=== PATIENT | female | born 2000 | race Caucasian/White ===

== ENCOUNTER 2021-01-11 20:20 | Emergency (ER) | payer BC ==
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
== END 2021-01-11 20:45 | disposition home or self-care (01) ==
LOC: LL.ED 20:20
DX: T24.512A Corrosion of first degree of left thigh, initial encounter (principal); T24.511A Corrosion of first degree of right thigh, initial encounter; T24.502A Corrosion of first degree of unspecified site of left lower limb, except ankle and foot, initial encounter; T54.3X1A Toxic effect of corrosive alkalis and alkali-like substances, accidental (unintentional), initial encounter; G43.909 Migraine, unspecified, not intractable, without status migrainosus; E66.9 Obesity, unspecified; R03.0 Elevated blood-pressure reading, without diagnosis of hypertension; Z88.0 Allergy status to penicillin; Z88.2 Allergy status to sulfonamides; Z68.42 Body mass index [BMI] 45.0-49.9, adult
CPT/HCPCS: 99283; 99284

== ENCOUNTER 2021-04-20 15:54 | Emergency (ER) | payer BC ==
--- NOTE | 2021-04-20 16:11 | EDM.PDOC ---
ED HPI GENERAL MEDICAL PROBLEM - General Chief Complaint: General Stated Complaint: NAUSEA/ABDOMINAL PAIN Time Seen by Provider: 04/20/21 16:00 Source of Information: Reports: Patient History Limitations: Reports: No Limitations - History of Present Illness INITIAL COMMENTS - FREE TEXT/NARRATIVE: She is seen in the emergency department for evaluation of right lower quadrant abdominal pain. Pain had sudden onset approximately 4 hours prior to arrival. Is well localized to the right lower quadrant. No radiating pain. No change with position. She has been nauseous with emesis x2. No fever or chills. No diarrhea. Normal bowel movement this morning. No recent illness. No shortness of breath or cough. No history of previous similar problems. Last menstrual period finished 2 days ago. She does states that her menstrual periods are very irregular. No vaginal discharge. Right Lower Abdomen Pain Score (Numeric/FACES): 8 - Related Data Allergies Allergy/AdvReac Type Severity Reaction Status Date / Time amoxicillin Allergy Rash Verified 04/20/21 16:01 Penicillins Allergy Shortness Verified 04/20/21 16:01 of Breath Sulfa (Sulfonamide Allergy Shortness Verified 04/20/21 16:01 Antibiotics) of Breath Home Meds: Home Meds . [No Known Home Meds] 01/11/21 [History] Past Medical History HEENT History: Reports: Impaired Vision, Other (See Below) Other HEENT History: Patient wears glasses. Cardiovascular History: Reports: Heart Murmur, Other (See Below) Other Cardiovascular History: Benign functional murmur on an intermittent basis with no work-up. Occasionally elevated blood pressure with no true hypertension. 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 Denies: Black Stool, Bloody Stool, Difficulty Swallowing, Hematemesis : Denies: Discharge, Dysuria, Frequency, Urgency Neurological: Denies: Confusion, Dizziness Psychiatric: Denies: Anxiety, Depression ED EXAM, GENERAL - Physical Exam Exam: See Below Exam Limited By: No Limitations General Appearance: Alert, WD/WN, No Apparent Distress Nose: Normal Inspection, Normal Mucosa, No Blood Throat/Mouth: Normal Inspection, Normal Oropharynx Head: Atraumatic, Normocephalic Neck: Non-Tender. No: Lymphadenopathy (L), Lymphadenopathy (R) Respiratory/Chest: No Respiratory Distress, Lungs Clear, Normal Breath Sounds GI/Abdominal: Normal Bowel Sounds, Soft, No Organomegaly, No Distention, No Mass, Tender (Mild tenderness in the right lower quadrant. No other tenderness.). No: Distended, Guarding, Rebound Course - Vital Signs Last Recorded V/S: Last Vital Signs Temp 36.8 C 04/20/21 15:55 Pulse 79 04/20/21 15:55 Resp 18 04/20/21 15:55 BP Pulse Ox 100 04/20/21 15:55 - Orders/Labs/Meds Orders: Active Orders 24 hr Category Date Time Status Abdomen Pelvis w Cont [CT] Stat Exams 04/20/21 16:12 Taken Sodium Chloride 0.9% [Normal Saline] 1,000 ml Med 04/20/21 16:13 Active IV ONETIME Medication Orders Sodium Chloride (Normal Saline) 1,000 mls @ 500 mls/hr IV ONETIME ONE Stop: 04/20/21 18:12 Labs: Laboratory Tests 04/20/21 04/20/21 04/20/21 Range/Units 16:11 16:11 16:35 WBC 12.8 H (4.0-10.2) K/uL RBC 5.02 (3.77-5.09) M/uL Hgb 14.8 (11.7-15.5) g/dL Hct 44.3 (34.0-46.0) % MCV 88.2 (84.0-98.0) fL MCH 29.5 (28.2-33.3) pg MCHC 33.4 (31.7-36.0) g/dL RDW 12.9 (11.2-14.1) % Plt Count 369 H (150-350) K/uL Neut % (Auto) 90.4 H (45.0-80.0) % Lymph % (Auto) 6.3 L (10.0-50.0) % Pi[place] % (Auto) 3.0 (2.0-14.0) % Eos % (Auto) 0.1 (0.0-5.0) % Baso % (Auto) 0.2 (0.0-2.0) % Neut # (Auto) 11.57 H (1.40-7.00) K/uL Lymph # (Auto) 0.80 (0.50-3.50) K/uL Piute # (Auto) 0.38 (0.00-1.00) K/uL Eos # (Auto) 0.01 (0.00-0.50) K/uL Baso # (Auto) 0.02 (0.00-0.20) K/uL Sodium (136-145) mmol/L Potassium (3.5-5.1) mmol/L Chloride (98-107) mmol/L Carbon Dioxide (21.0-32.0) mmol/L Anion Gap (7-15) meq/L BUN (7-18) mg/dL Creatinine (0.51-1.17) mg/dL Est Cr Clr Drug Dosing Estimated GFR (MDRD) mL/min Glucose (70-99) mg/dL Calcium (8.5-10.1) mg/dL Total Bilirubin (0.2-1.0) mg/dL AST (15-37) U/L ALT (12-78) U/L Alkaline Phosphatase (46-116) IU/L Total Protein (6.4-8.2) g/dL Albumin (3.4-5.0) g/dL Specimen Type Urinvoid Urine Color Dark yellow Urine Appearance Cloudy Urine pH 6.0 (5.0-9.0) Ur Specific [place] >= 1.030 (1.005-1.030) Urine Protein 30 H (NEGATIVE) mg/dL Urine Glucose (UA) Negative (NEGATIVE) mg/dL Urine Ketones 15 H (NEGATIVE) mg/dL Urine Occult Blood Large H (NEGATIVE) Urine Nitrite Negative (NEGATIVE) Urine Bilirubin Small H (NEGATIVE) Urine Urobilinogen 0.2 (0.2-1.0) E.U./dL Ur Leukocyte Esterase Trace H (NEGATIVE) Urine RBC >100 H /HPF Urine WBC 0-5 /HPF Ur Epithelial Cells Few /LPF Urine Bacteria Few (NONE TO FEW) /HPF Urine Mucus Few H (NEGATIVE) /LPF Urine Other See note H Urine HCG, Qual Negative 04/20/21 Range/Units 16:35 WBC (4.0-10.2) K/uL RBC (3.77-5.09) M/uL Hgb (11.7-15.5) g/dL Hct (34.0-46.0) % MCV (84.0-98.0) fL MCH (28.2-33.3) pg MCHC (31.7-36.0) g/dL RDW (11.2-14.1) % Plt Count (150-350) K/uL Neut % (Auto) (45.0-80.0) % Lymph % (Auto) (10.0-50.0) % Pi[place] % (Auto) (2.0-14.0) % Eos % (Auto) (0.0-5.0) % Baso % (Auto) (0.0-2.0) % Neut # (Auto) (1.40-7.00) K/uL Lymph # (Auto) (0.50-3.50) K/uL [place] # (Auto) (0.00-1.00) K/uL Eos # (Auto) (0.00-0.50) K/uL Baso # (Auto) (0.00-0.20) K/uL Sodium 142 (136-145) mmol/L Potassium 3.7 (3.5-5.1) mmol/L Chloride 105 (98-107) mmol/L Carbon Dioxide 27.1 (21.0-32.0) mmol/L Anion Gap 9.9 (7-15) meq/L BUN 9 (7-18) mg/dL Creatinine 1.00 (0.51-1.17) mg/dL Est Cr Clr Drug Dosing TNP Estimated GFR (MDRD) > 60 mL/min Glucose 116 H (70-99) mg/dL Calcium 9.4 (8.5-10.1) mg/dL Total Bilirubin 0.5 (0.2-1.0) mg/dL AST 18 (15-37) U/L ALT 34 (12-78) U/L Alkaline Phosphatase 106 (46-116) IU/L Total Protein 8.0 (6.4-8.2) g/dL Albumin 4.4 (3.4-5.0) g/dL Specimen Type Urine Color Urine Appearance Urine pH (5.0-9.0) Ur Specific [place] (1.005-1.030) Urine Protein (NEGATIVE) mg/dL Urine Glucose (UA) (NEGATIVE) mg/dL Urine Ketones (NEGATIVE) mg/dL Urine Occult Blood (NEGATIVE) Urine Nitrite (NEGATIVE) Urine Bilirubin (NEGATIVE) Urine Urobilinogen (0.2-1.0) E.U./dL Ur Leukocyte Esterase (NEGATIVE) Urine RBC /HPF Urine WBC /HPF Ur Epithelial Cells /LPF Urine Bacteria (NONE TO FEW) /HPF Urine Mucus (NEGATIVE) /LPF Urine Other Urine HCG, Qual Meds: Medications Generic Name Dose Route Start Last Admin Trade Name Freq PRN Reason Stop Dose Admin Sodium Chloride 1,000 mls @ 500 mls/hr 04/20/21 16:13 Normal Saline IV 04/20/21 18:12 ONETIME ONE Discontinued Medications Generic Name Dose Route Start Last Admin Trade Name Freq PRN Reason Stop Dose Admin Iopamidol 100 ml 04/20/21 16:17 04/20/21 17:32 Iopamidol 612 Mg/Ml 100 Ml Bottle IVPUSH 04/20/21 16:18 100 ml ONETIME STA Administration - Radiology Interpretation Free Text/Narrative:: CT scan of the abdomen shows a 2 mm stone at the right ureterovesicular junction with possible mild hydronephrosis on the right. - Re-Assessments/Exams Free Text/Narrative Re-Assessment/Exam: 04/20/21 18:11 No findings are consistent with a renal calculi on the right. She was given some IV fluid and as reported significant improvement in her pain by the time the CT results were passed. Likely is already passed the stone into the bladder. Will treat presumptively for UTI as well given the few white blood cells in the urine. Departure - Departure Time of Disposition: 17:59 Disposition: Home, Self-Care 01 Condition: Good Clinical Impression: Renal calculus, right, UTI, Urinary tract infectious disease - Discharge Information *PRESCRIPTION DRUG MONITORING PROGRAM REVIEWED*: Not Applicable *COPY OF PRESCRIPTION DRUG MONITORING REPORT IN PATIENT DESIRE: Not Applicable Referrals: Shavonne Fernandez PA [Primary Care Provider] - Forms: ED Department Discharge Additional Instructions: Push fluids. Cipro 500 mg twice daily for 3 days. Follow up as needed. Sepsis Event Note (ED) - Focused Exam Vital Signs: Vital Signs Temp Pulse Resp Pulse Ox 04/20/21 15:55 36.8 C 79 18 100 - Problem List & Annotations (1) Renal calculus, right SNOMED Code(s): 22395609 Code(s): N20.0 - CALCULUS OF KIDNEY Status: Acute - My Orders Last 24 Hours: My Active Orders 04/20/21 16:12 Abdomen Pelvis w Cont [CT] Stat 04/20/21 16:13 Sodium Chloride 0.9% [Normal Saline] 1,000 ml IV ONETIME - Assessment/Plan Last 24 Hours: My Active Orders 04/20/21 16:12 Abdomen Pelvis w Cont [CT] Stat 04/20/21 16:13 Sodium Chloride 0.9% [Normal Saline] 1,000 ml IV ONETIME Plan: Push fluids. Cipro 500 mg twice daily for 3 days. Follow up as needed.
[2021-04-20] MEDS ORDERED: Sodium Chloride 0.9% 1,000 ML IV ONE (16:13)
[2021-04-20] MEDS ORDERED: Iopamidol 612 MG/ML 100 ML Bottle IVPUSH STA (16:17)
[2021-04-20 16:57] LABS: ANION GAP 9.9 meq/L (7-15); CHLORIDE,CL 105 mmol/L (98-107); SODIUM,NA 142 mmol/L (136-145)
== END 2021-04-20 18:30 | disposition home or self-care (01) ==
LOC: LL.ED 15:54
DX: N13.2 Hydronephrosis with renal and ureteral calculous obstruction (principal); N39.0 Urinary tract infection, site not specified; E66.9 Obesity, unspecified; Z68.30 Body mass index [BMI] 30.0-30.9, adult; Z88.0 Allergy status to penicillin; Z88.2 Allergy status to sulfonamides
CPT/HCPCS: 36415; 74177; 80053; 81001; 81025; 85025; 99283; 99284-25; J7030; Q9967